=== PATIENT | male | born 1990 | race Caucasian/White ===

== ENCOUNTER 2020-07-23 17:10 | Emergency (ER) | payer SELFPAY ==
[~2020-07-23] VITALS: Ht 175.3 cm; Wt 90.7 kg
--- NOTE | 2020-07-23 18:01 | Emergency Department Note ---
History of Present Illnes History of Present Illness Chief Complaint: General Medicine Complaints History of Present Illness This is a 30 year old male PATIENT IN [facility], STATES HE WAS HUFFING COMPRESSED AIR AND THE POLICE WANTED HIM TO COME AND GET CHECKED OUT. PATIENT DENIES ANY SHORTNESS OF BREATH, COUGH, CONGESTION, HEADACHE, PAIN, OR ANY OTHER SYMPTOM AT THIS TIME; PATIENT ALERT AND ORIENTED, RESP EVEN AND NONLABORED, AMBULATORY WITHOUT ASSISTANCE. 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 Any updates have been documented here. Past Medical History Recent Fever: No Clinical Suspicion of Infectio: No New/Unexplained Change in Ment: No Past Medical History: None Past Surgical History: None Social History Smoking Cessation: Current every day smoker Counseling Performed: Yes Alcohol Use: Occasional Any Illegal Drug Use: Yes (HUFFING PAINT) Physically hurt or threatened: No Family History Family history of heart diseas: No Other Any Pre-Existing Lines (PICC,: No Review of Systems Review of Systems Constitutional: Reports no symptoms EENTM: Reports no symptoms Cardiovascular: Reports no symptoms Respiratory: Reports no symptoms Gastrointestinal: Reports no symptoms Genitourinary: Reports no symptoms Musculoskeletal: Reports no symptoms Integumentary: Reports no symptoms Neurological: Reports no symptoms Psychological: Reports no symptoms Endocrine: Reports no symptoms Hematological/Lymphatic: Reports no symptoms Physical Exam Related Data Allergies: Coded Allergies: No Known Allergies (Unverified , 07/23/20) Triage Vital Signs Vital Signs Date Time Temp Pulse Resp B/P (MAP) Pulse Ox O2 Delivery O2 Flow Rate FiO2 07/23/20 17:16 98.1 89 18 146/99 100 Room Air Vital signs reviewed: Yes Physical Exam CONSTITUTIONAL Constitutional: Present well-developed, Present well-nourished HENT HENT: Present normocephalic, Present atraumatic, Present oropharynx clear/moist, Present nose normal HENT L/R: Present left ext ear normal, Present right ext ear normal EYES Eyes: Reports PERRL, Reports conjunctivae normal NECK Neck: Present ROM normal PULMONARY Pulmonary: Present effort normal, Present breath sounds normal; Absent respiratory distress CARDIOVASCULAR Cardiovascular: Present regular rhythm, Present heart sounds normal, Present capillary refill normal, Present normal rate GASTROINTESTINAL Abdominal: Present soft, Present nontender, Present bowel sounds normal GENITOURINARY Genitourinary: Present exam deferred SKIN Skin: Present warm, Present dry MUSCULOSKELETAL Musculoskeletal: Present ROM normal NEUROLOGICAL Neurological: Present alert, Present oriented x 3, Present no gross motor or sensory deficits PSYCHOLOGICAL Psychological: Present mood/affect normal, Present judgement normal Assessment & Plan Medical Decision Making MDM NO COMPLAINTS, HUFFING PAINT AND POLICE CAME AND CALLED EMS TO BRING TO ER, NO SI/HI, WANTS TO GO HOME Reassessment Reassessment COUNSELED ON NO MORE PAINT HUFFING AND SERIOUS CONSEQUENCES OF CONTINUING - PT WAS APPRECIATIVE AND SAYS HE WON'T DO IT ANYMORE, GAVE ON-CALL MD PARSON TO ESTABLISH PCP Assessment & Plan Final Impression: (1) Huffing Depart Disposition: HOME, SELF-CARE Last Vital Signs Date Time Temp Pulse Resp B/P (MAP) Pulse Ox O2 Delivery O2 Flow Rate FiO2 07/23/20 17:16 98.1 89 18 146/99 100 Room Air MARIELLA HANKS MD Jul 23, 2020 18:01
== END 2020-07-23 17:20 | disposition home or self-care (01) ==
LOC: ER 17:14
DX: F18.10 Inhalant abuse, uncomplicated (principal); F17.210 Nicotine dependence, cigarettes, uncomplicated
CPT/HCPCS: 99283